=== PATIENT | male | born 1990 | race African-American/Black ===

== ENCOUNTER 2019-12-11 10:32 | Emergency (ER) | payer OTHER ==
[~2019-12-11] VITALS: Ht 188 cm; Wt 135.0 kg
[2019-12-11] MEDS ORDERED: TYLENOL WITH CO1 TA1 PO (12:12)
[2019-12-11] MEDS ORDERED: MEDROLDOSEPACK PO (12:12)
[2019-12-11] MEDS ORDERED: IBUPROFEN 800800 M1 PO (12:12)
[2019-12-11 12:44] VITALS: BP 123/74
== END 2019-12-11 12:45 | disposition home or self-care (01) ==
LOC: M.ERS 10:32
DX: M51.16 Intervertebral disc disorders with radiculopathy, lumbar region (principal); F17.210 Nicotine dependence, cigarettes, uncomplicated